=== PATIENT | female | born 1995 | race Two or more races ===

== ENCOUNTER 2023-01-28 10:25 | Emergency (ER) | payer MEDICAID, SELFPAY ==
--- NOTE | ~2023-01-28 | CT_ITS ---
EXAMINATION: CT CHEST WITHOUT CONTRAST CLINICAL INFORMATION: Mass. Palpable abnormality mid chest. The history on ultrasound suggests clinical concern for abscess below the sternoclavicular area COMPARISON: None available. TECHNIQUE: Multidetector volumetric CT imaging of the chest was done. Axial MIP volume rendering provided. Sagittal and coronal reformatted images were obtained. This CT examination was performed using dose optimization techniques as appropriate, variously including the following: *Automated exposure control *Adjustment of mA and/or kV according to patient size (this includes techniques or standardized protocols for targeted exams where dose is matched to indication/reason for exam; i.e. extremities or head) *Use of iterative reconstruction technique DLP: 171 mGy-cm FINDINGS: [employer] MECH[employer]IC: No pneumonia or edema. LUNGS: Limited by motion. No suspicious abnormality of the central airways. There is a possible 0.8 cm nodule in the posteromedial right costophrenic sulcus region (series 4, image 39). There is a possibly calcified 0.3 cm nodule in the periphery of the left upper lobe (series 6, image 118). Nodules in this age group are unlikely to be malignant. In the absence of known primary malignancy further evaluation for cancer is not necessary. MEDIASTINUM: There are no enlarged mediastinal or hilar lymph nodes. No suspicious abnormality the esophagus. CORONARY ARTERY CALCIFICATION: None visualized on this study. PLEURA: There is no pleural effusion. No pleural mass or thickening. AXILLA: No lymphadenopathy. UPPER ABDOMEN: No suspicious abnormality OSSEOUS STRUCTURES: There is no evidence of an abscess in the chest wall. There is no cortical erosion or bone destruction in the region of the sternoclavicular joints. There is no soft tissue gas. CT/CT chest wo IV con IMPRESSION: No pneumonia or edema. No chest wall abscess demonstrated. The patient should be managed on the basis of the physical exam, history and laboratory values. Motion limits assessment but there may be a nodule in the posteromedial right lower lung and a calcified granuloma in the left lung. In this age group malignancy is extraordinarily unlikely unless there is a known primary malignancy. Fleischner criteria do not apply Fleischner guidelines were followed.
--- NOTE | ~2023-01-28 | US_ITS ---
EXAMINATION: US CHEST CLINICAL INFORMATION: Mass on chest. Rule out abscess. COMPARISON: Previous chest x-ray and chest CT from earlier the same day TECHNIQUE: Grayscale and color imaging of the anterior chest wall in the area of palpable abnormality just inferior to the sternoclavicular joints using a linear transducer FINDINGS: No abnormality is evident by ultrasound. No soft tissue mass or fluid collection is seen. US/US chest IMPRESSION: No abnormality seen by ultrasound.
--- NOTE | ~2023-01-28 | XR_ITS ---
EXAMINATION: XR CHEST CLINICAL INFORMATION: Palpable sternal lump. COMPARISON: None available. TECHNIQUE: 2 views of the chest were obtained. FINDINGS: No significant abnormality is noted involving the heart, lungs, mediastinum, bony thorax or soft tissues. XR/XR chest 2V IMPRESSION: No acute cardiopulmonary process. No overt presternal soft tissue abnormality. If the lump persists or worsens, further evaluation with targeted soft tissue ultrasound is recommended.
--- NOTE | 2023-01-28 10:28 | ECG_ITS ---
Test Reason : cp Blood Pressure : / mmHG Vent. Rate : 122 BPM Atrial Rate : 122 BPM P-R Int : 140 ms QRS Dur : 068 ms QT Int : 326 ms P-R-T Axes : 061 044 003 degrees QTc Int : 464 ms Poor data quality Sinus tachycardia Otherwise normal ECG No previous ECGs available Referred By: Generic ED Physician Electronically Signed By:XIOMARA JEFFERY MD
--- NOTE | 2023-01-28 10:32 | PC.NURSE ---
EKG BEING PERFORMED ON ANOTHER PATIENT WHICH RESULTED IN DELAY
[2023-01-28 10:57] VITALS: BP 145/91; PULSE 95; RESP 16; TEMP 36.7; O2SAT 100; BMI 30.4
--- NOTE | 2023-01-28 10:59 | ED_ITS ---
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 She reports that when she gains weight, the mass becomes larger and when she loses weight, the mass becomes smaller. She denies any discharge or drainage from the area. She denies seeing any previous providers for this complaint. She denies any new changes to bring her to the ED today. <LUCY Khan Last Filed: 01/28/23 16:58> Related Data Allergies/Adverse Reactions: Allergies Allergy/AdvReac Type Severity Reaction Status Date / Time No Known Allergies Allergy Verified 01/28/23 11:10 <DARELEN Omalley - Last Filed: 01/28/23 11:12> Review of Systems Review of Systems: As per HPI. <LUCY Khan Last Filed: 01/28/23 16:58> Yes all other systems are reviewed and are negative <LUCY Khan Last Filed: 01/28/23 16:58> PMFSH Social History Social History: Social History Advance Directives: No Advance Directives Information Provided: Yes <DARLEEN Omalley Last Filed: 01/28/23 11:12> Physical Exam Vital Signs: Vital Signs: Last Vital Signs Temp 99.0 F 01/28/23 15:17 Pulse 104 H 01/28/23 15:17 Resp 16 01/28/23 15:17 BP 141/80 H 01/28/23 15:17 Pulse Ox 98 01/28/23 15:17 O2 Del Method Room Air 01/28/23 15:17 BMI result Body Mass Index 30.4 <DARLEEN Omalley - Last Filed: 01/28/23 11:12> Vital Signs: Last Vital Signs Temp 99.0 F 01/28/23 15:17 Pulse 104 H 01/28/23 15:17 Resp 16 01/28/23 15:17 BP 141/80 H 01/28/23 15:17 Pulse Ox 98 01/28/23 15:17 O2 Del Method Room Air 01/28/23 15:17 BMI result Body Mass Index 30.4 <Geena Lerma NP - Last Filed: 01/28/23 16:58> Const: General: cooperative, healthy appearing and no acute distress <Geena Lerma NP - Last Filed: 01/28/23 16:58> Orientation/consciousness: oriented to person, oriented to place, oriented to time and patient oriented x3 <Geena Lerma NP - Last Filed: 01/28/23 16:58> Limitations: no limitations <Geena Lerma NP - Last Filed: 01/28/23 16:58> HEENT: Head: Yes normocephalic and Yes atraumatic <Geena Lerma NP - Last Filed: 01/28/23 16:58> Ears: external ears normal <Geena Lerma NP - Last Filed: 01/28/23 16:58> General nose exam: Normal external nose present <Geena Lerma NP - Last Filed: 01/28/23 16:58> Face and sinus: Yes face symmetric <Geena Lerma NP - Last Filed: 01/28/23 16:58> Mouth: oropharynx normal and moist mucous membranes <Geena Lerma NP - Last Filed: 01/28/23 16:58> Eyes: Pupils: Equal, round and reactive pupils present <Geena Lerma NP - Last Filed: 01/28/23 16:58> Neck: Neck: Yes normal visual inspection and Yes supple <Geena Lerma NP - Last Filed: 01/28/23 16:58> Chest: Chest palpation & inspection: mass superior sternum rubbery and mobile; nontender, no tenderness and No rash <Geena Lerma NP - Last Filed: 01/28/23 16:58> Breast/axilla palpation: no axillary lymphadenopathy <Geena Lerma NP - Last Filed: 01/28/23 16:58> Resp: Effort & Inspection: normal respiratory effort and able to speak in complete sentences <Geena Lerma NP - Last Filed: 01/28/23 16:58> Auscultation: clear to auscultation bilaterally <Geena Lerma NP - Last Filed: 01/28/23 16:58> Cardio: Rate: regular rate <Geena Lerma NP - Last Filed: 01/28/23 16:58> Rhythm: regular rhythm <Geena Lerma NP - Last Filed: 01/28/23 16:58> Heart sounds: S1 normal heart sound present and S2 normal heart sound present <Geena Lerma NP - Last Filed: 01/28/23 16:58> Skin: General skin exam: elasticity normal and turgor normal <Geena Lerma NP - Last Filed: 01/28/23 16:58> Neuro: General: oriented to person, oriented to place, oriented to time, patient oriented x3, moves all extremities and no focal motor deficits <Geena Lerma NP - Last Filed: 01/28/23 16:58> Cranial nerves: Yes Equal, round and reactive pupils present <Geena Lerma NP - Last Filed: 01/28/23 16:58> Cognition (Neuro): normal cognition <Geena Lerma NP - Last Filed: 01/28/23 16:58> Extrem: General: Yes full ROM <Geena Lerma NP - Last Filed: 01/28/23 16:58> Psych: Mental Status: mental status grossly normal <Geena Lerma NP - Last Filed: 01/28/23 16:58> Affect: normal affect <Geena Lerma NP - Last Filed: 01/28/23 16:58> Thought process: Normal thought process present <Geena Lerma NP - Last Filed: 01/28/23 16:58> Course Course Course Narrative: RME - 28 yo female Hat[place] Creole speaking who presents to the ER for evaluation of a waxing/waning painless mass in the center of chest that has been present since 2016. It gets bigger when she gains weight and small whens he loses weight. It is nontender. She has no SOB. She wants to know what it is. Plan: 2 view x-ray, no emergent need for CT scan today <DARLEEN Omalley - Last Filed: 01/28/23 11:12> RME - 28 yo female [place] Creole speaking who presents to the ER for evaluation of a waxing/waning painless mass in the center of chest that has been present since 2016. It gets bigger when she gains weight and small whens he loses weight. It is nontender. She has no SOB. She wants to know what it is. Plan: 2 view x-ray, no emergent need for CT scan today 12:28 Chest x-ray FINDINGS: No significant abnormality is noted involving the heart, lungs, mediastinum, bony thorax or soft tissues. XR/XR chest 2V IMPRESSION: No acute cardiopulmonary process. ? No overt presternal soft tissue abnormality. If the lump persists or worsens, further evaluation with targeted soft tissue ultrasound is recommended. Ordered ultrasound and CT chest without contrast to rule out abscess or malignancy. 16:23 CT/CT chest wo IV con IMPRESSION: No pneumonia or edema. No chest wall abscess demonstrated. ? The patient should be managed on the basis of the physical exam, history and laboratory values. ? Motion limits assessment but there may be a nodule in the posteromedial right lower lung and a calcified granuloma in the left lung. ? In this age group malignancy is extraordinarily unlikely unless there is a known primary malignancy. ? Fleischner criteria do not apply? ? Fleischner guidelines were followed. Awaiting results of ultrasound 16:38 FINDINGS: No abnormality is evident by ultrasound. No soft tissue mass or fluid collection is seen.? US/US chest IMPRESSION: No abnormality seen by ultrasound. ? Advised patient of ultrasound and CT results, likely lipoma or normal anatomic feature of her sternum. Instructed patient to follow up with PCP. Return precautions discussed. <Geena Lerma NP - Last Filed: 01/28/23 16:58> Medical Decision Making Medical Decision Making MDM Narrative: Patient is a 28-year-old female, denies any past history, presenting with nontender mass to the center of her chest which has been present since 2016, and changes in size based on fluctuations in patient's weight. On exam patient is nontoxic appearing with normal vital signs, afebrile, noted to have firm/rubbery non-tender mass to superior sternum without erythema, calor, overlying rash, discharge, or drainage. Considering lipoma, malignancy/mass, fracture, lymphadenopathy. Less likely abscess, cellulitis. Plan: EKG, chest x-ray Please refer to course for remainder of clinical decision making. <Geena hollins NP - Last Filed: 01/28/23 16:58> Differential Diagnosis Differential Diagnoses: The differential diagnosis associated with the presentation includes <Geena Lerma NP - Last Filed: 01/28/23 16:58> As above. <Geena Lerma NP - Last Filed: 01/28/23 16:58> Lab Data Labs: Lab Results 01/28/23 Range/Units 15:19 Urine Test NEGATIVE (NEGATIVE) <DARLEEN Omalley - Last Filed: 01/28/23 11:12> Lab Results 01/28/23 Range/Units 15:19 Urine Test NEGATIVE (NEGATIVE) <Geena Lerma NP - Last Filed: 01/28/23 16:58> Independent Interpretation I performed an independent interpretation of an: EKG, Plain X-Ray, Ultrasound and CT Scan <Geena Lerma NP - Last Filed: 01/28/23 16:58> Interpretation: EKG: sinus tachycardia, rate 122bpm, normal OR interval I independently reviewed the x-ray, U/S, and CT scan and agree with the radiologist's interpretation. <Geena Lerma NP - Last Filed: 01/28/23 16:58> Radiology Impression Discussion of test interpretation with radiology: I have reviewed the radiologist's reading. <Geena Lerma NP - Last Filed: 01/28/23 16:58> Radiologist Impression: FINDINGS: No significant abnormality is noted involving the heart, lungs, mediastinum, bony thorax or soft tissues. XR/XR chest 2V IMPRESSION: No acute cardiopulmonary process. ? No overt presternal soft tissue abnormality. If the lump persists or worsens, further evaluation with targeted soft tissue ultrasound is recommended. <Geena Lerma NP - Last Filed: 01/28/23 16:58> External Record Review External record reviewed: Inpatient record, Office record and Outpatient record <Geena Lerma NP - Last Filed: 01/28/23 16:58> Discharge Plan Discharge Clinical Impression: Chest anomaly <DARLEEN Omalley - Last Filed: 01/28/23 11:12> Patient Disposition: Home, Self-Care <DARLEEN Omalley - Last Filed: 01/28/23 11:12> Additional Instructions: You were evaluated in the emergency department today for a lump on your chest. Your evaluation, including x-ray, ultrasound and CT scan, has shown no signs of medical conditions requiring emergent intervention at this time. You should follow up with your primary care provider within the next week. Return to the emergency department if you experience new chest pain, shortness of breath, light headedness, feeling faint, or any other concerning symptoms. <DARLEEN Omalley - Last Filed: 01/28/23 11:12>
[2023-01-28 15:17] VITALS: BP 141/80; PULSE 104; RESP 16; TEMP 37.2; O2SAT 98
[2023-01-28 15:26] LABS: UPreg QC Valid YES
[2023-01-28 15:28] LABS: Urine Pregnancy NEGATIVE (NEGATIVE)
== END 2023-01-28 17:11 | disposition home or self-care (01) ==
PROVIDERS: Registered Nurse Emergency; Emergency Provider Emergency Medicine
DX: R07.89 Other chest pain (principal); R22.2 Localized swelling, mass and lump, trunk; M54.6 Pain in thoracic spine; Z79.899 Other long term (current) drug therapy
CPT/HCPCS: 71046; 71250; 76604; 81025; 93005; 99283; 99284

== ENCOUNTER 2024-02-03 09:38 | Outpatient (REF) | payer MEDICAID, SELFPAY ==
[2024-02-03 11:45] LABS: Hematocrit 39.1 % (37.0-47.0); Mean Corpuscular HGB Conc 33.2 g/dl (31.0-35.0); Mean Corpuscular Hemoglobin 28.8 pg (27.0-33.0); Mean Corpuscular Volume 86.7 fL (80.0-98.0); Mean Platelet Volume 9.9 fL (9.4-12.3); Platelet Count 484 X10*3/uL (160-400); Red Blood Count 4.51 X10*6/uL (4.20-5.50); Red Cell Distribution Width 12.9 % (11.0-16.0); White Blood Count 6.4 X10*3/uL (4.8-10.8)
[2024-02-03 12:21] LABS: Estimated Average Glucose 108 mg/dL; Hemoglobin A1c % 5.4 % (<6.0)
[2024-02-03 12:25] LABS: Alanine Aminotransferase 14 U/L (0-31); Albumin Level 4.6 g/dL (3.5-5.0); Alkaline Phosphatase 108 U/L (39-117); Anion Gap 14 (12-20); Aspartate Amino Transferase 17 U/L (5-31); Bilirubin Total 0.4 mg/dL (0.0-1.0); Blood Urea Nitrogen 8 mg/dL (9-16); Calcium 9.8 mg/dL (8.4-10.2); Carbon Dioxide 23 mmol/L (22-29); Chloride 108 mmol/L (96-108); Cholesterol 162 mg/dL (<200); Estimated Glomerular Filt Rate > 60; Glucose Random 85 mg/dL (60-115); HDL Cholesterol 51 mg/dL (>40); LDL Cholesterol Calculated 104 mg/dL (<100); Potassium 3.6 mmol/L (3.3-5.1); Sodium 141 mmol/L (135-145); Total Protein 8.4 g/dL (6.5-8.0); Triglycerides 37 mg/dL (<150)
[2024-02-03 12:32] LABS: TSH reflex Free T4 1.94 uIU/mL (0.32-4.0); Vitamin D 25-OH Total 21.5 ng/mL (>30)
[2024-02-03 13:12] LABS: CT PCR NOT DETECTED (Not Detect.); NG PCR NOT DETECTED (Not Detect.)
[2024-02-03 18:15] LABS: Iron 73 mcg/dL (30-160); Percent Iron Saturation 24 % (15-50); Total Iron Binding Capacity 298 mcg/dL (228-428); Unsaturated Iron Binding 225 ug/dL
[2024-02-03 18:28] LABS: Ferritin 61 ng/mL (10-122)
[2024-02-06 08:16] LABS: Syphilis Screen Nonreactive (Nonreactive)
[2024-02-06 08:29] LABS: HBS Num1 0.89 mIU/mL (0-7.99); HBc Num1 0.21 S/CO (0.00-0.79); HBsAGNum1 0.31 S/CO (0.00-0.99); HIV AB/AG Nonreactive (Nonreactive); HIV Num 1 0.09 S/CO (0.00-0.99); Hepatitis B Core Antibody Nonreactive (Nonreactive); Hepatitis B Surface Antigen Negative (Negative); ~HepC Num1 0.18 S/CO (0.00-0.79); ~Hepatitis B Surface Antibody NONREACTIVE (Nonreactive); ~Hepatitis C Antibody Nonreactive (Nonreactive)
== END 2024-02-03 09:39 | disposition home or self-care (01) ==
LOC: HO.HHCL 09:38
PROVIDERS: Visit Provider Student in an Organized Health Care Education/Training Program
DX: Z00.00 Encounter for general adult medical examination without abnormal findings (principal)
CPT/HCPCS: 0353U; 36415; 80053; 80061; 82306; 82728; 83036; 83540; 84443; 85027; 86704; 86706; 86780; 86803; 87340; 87389

== ENCOUNTER 2024-05-09 09:26 | Outpatient (REF) | payer MEDICAID, SELFPAY ==
[2024-05-09 12:26] LABS: Iron 58 mcg/dL (30-160); Percent Iron Saturation 20 % (15-50); Total Iron Binding Capacity 287 mcg/dL (228-428); Unsaturated Iron Binding 229 ug/dL
[2024-05-09 12:39] LABS: Ferritin 64 ng/mL (10-122)
== END 2024-05-09 09:27 | disposition home or self-care (01) ==
LOC: HO.HHCL 09:26
PROVIDERS: Visit Provider Student in an Organized Health Care Education/Training Program
DX: Z00.00 Encounter for general adult medical examination without abnormal findings (principal)
CPT/HCPCS: 36415; 82728; 83540

== ENCOUNTER 2025-09-10 14:37 | Outpatient (REF) | payer MEDICAID, SELFPAY ==
[2025-09-10 16:16] LABS: Hematocrit 39.3 % (37.0-47.0); Hemoglobin 12.8 g/dl (12.0-16.0); Mean Corpuscular HGB Conc 32.6 g/dl (31.0-35.0); Mean Corpuscular Hemoglobin 29.4 pg (27.0-33.0); Mean Corpuscular Volume 90.3 fL (80.0-98.0); NRBC Abs Auto 0.000 X10*3/uL (0.0-0.012); NRBC Pct Auto 0.0 /100WBC (0.0-0.2); Platelet Count 446 X10*3/uL (160-400); Red Blood Count 4.35 X10*6/uL (4.20-5.50); White Blood Count 7.3 X10*3/uL (4.8-10.8)
[2025-09-10 16:58] LABS: Alanine Aminotransferase 21 U/L (0-31); Albumin Level 4.9 g/dL (3.5-5.0); Alkaline Phosphatase 78 U/L (39-117); Anion Gap 10 (12-20); Aspartate Amino Transferase 30 U/L (5-31); Blood Urea Nitrogen 9 mg/dL (9-16); Calcium 9.4 mg/dL (8.4-10.2); Carbon Dioxide 23 mmol/L (22-29); Chloride 106 mmol/L (96-108); Cholesterol 140 mg/dL (<200); Estimated Glomerular Filt Rate > 60; HDL Cholesterol 50 mg/dL (>40); Potassium 3.4 mmol/L (3.3-5.1); Sodium 136 mmol/L (135-145); Total Protein 7.9 g/dL (6.5-8.0); Triglycerides 58 mg/dL (<150)
--- OUTSIDE RECORDS SUMMARY | 2025-09-10 18:54 | XMS_ITS | Clinical Summary ---
Author Organization [employer] Address [address] [facility] [address] [place] [address] Care Team Providers Care Playground Attendant Name Role Phone Stephanie Robles MD Primary Care Pro vider Allergies No known active allergies Medications Misc. Devices (Pulse Oximeter Deluxe) mis 1 Application Once per day. 1 each Active Active Problems Patient Care Coordination No te Formatting of this note migh t be different from the original. 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 Thrombocytosis 02/07/2024 Class 1 obesity 12/14/2023 Elevated blood pressure reading 12/14/2023 Health care maintenance 12/14/2023 Resolved Problems Problem Noted Date Diagnosed Date Resolved Date Decreased vision of left eye 12/14/2023 06/11/2025 Encounters Date Type Department Care Team Description 08/19/2025 9:15 AM EST Office Visit [facility] [address] [place] [address] Joseph, Nusrat, OD Hypermetropia, right (Primary Dx) 07/01/2025 Telephone [facility] [address] [place] [address] Stephanie Robles MD chart prep from Last 3 Months Immunizations Immunization Administration Dates Next Due Hep B, adult 02/26/2025,03/09/2024,02/07/2024 Influenza, IIV3, injectable 06/30/2023 Pfizer Covid-19 Vaccine 12+ 12/14/2023 RSV Bivalent 10/06/2023 Tdap 08/25/2023 Social History Tobacco Use Types Packs/Day Years Used Date Smoking Tobacco: Never Passive Smoke Exposure: Never Smokeless Tobacco: Never Tobacco Cessation:Counseling Given: Not Answered Alcohol Use Standard Drinks/Week Comments Not Asked 0 (1 standard drink = 0.6 oz pur e alcohol) social Depression Answer Date Recorded Patient Health Questionnaire-9 Score 0 12/14/2023 Patient Health Questionnaire-9 Score 0 12/14/2023 Last PHQ-9: Questionnaire Data Not on file 0 12/14/2023 Housing Stability Answer Date Recorded What is your housing situation today? I have enoch kit 02/26/[address] you li ve. Do you have problems with any of the following? None of the above 02/26/2025 Food Insecurity Answer Date Recorded Within the past 12 months, y ou worried that your food would run out before you got money to buy more: Never True 02/26/2025 Within the past 12 months,th e food you bought just didn't last and you didn't have enough money to get more: Never True 11/2024 Transportation Answer Date Recorded In the past 12 months, has l ack of transportation kept you from medical appts, meetings, work or from getting things needed for daily living? No 02/26/2025 Utilities Answer Date Recorded In the past 12 months, has t he electric, gas, oil or water company threatened to shut off services in your home? No 02/26/2025 Depression Answer Date Recorded Patient Health Questionnaire-2 Score 0 12/14/2023 Internet Access Answer Date Recorded Internet Access Q1 No 02/26/2025 Internet Access Q2 I do not want or need it 11/2024 Comments Unknown Sex and Gender Information Value Date Recorded Sex Assigned at Female 12/14/2023 9:06 AM EDT Legal Sex Female 11:08 AM EDT Gender Identity Female 12/14/2023 9:06 AM EDT Sexual Orientation Straight 12/14/2023 9: 36 AM EDT Last Filed Vital Signs Vital Sign Reading Time Taken Comments Blood Pressure 126/70 02/26/2025 2:23 PM EDT Pulse 108 02/26/2025 2:23 PM EDT Temperature 36.2 C (97.1 F) 02/26/2025 2:23 PM EDT Respiratory Rate 20 02/26/2025 2:23 PM EDT Oxygen Saturation 100% 02/26/2025 2:23 PM EDT Inhaled Oxygen Concentration - - Weight 74.9 kg (165 lb 3.2 oz) 04/23/2025 1:44 P M EDT Height 152.4 cm (5') 04/23/2025 1:44 PM EDT Body Mass Index 32.26 04/23/2025 1:44 PM EDT Plan of Treatment Upcoming Encounters Date Type Department Care Team (Late st Contact Info) Description 09/13/2025 2:00 PM EST Office Visit [facility] [address] [place], [place] [phone] Stephanie Robles MD [address] [place], [place] [phone] Health Maintenance Due Date Last Done Comments Family Planning (PISQ) 01/18/2011 HPV Vaccines (1 - 3-dose series) 01/18/2011 Pap Smear 01/18/2017 Depression Screening 12/13/2024 12/14/2023, 12/14/2023 COVID-19 Vaccine (2 - 2024-2 6 season) 2025 12/14/2023 Influenza Vaccine (#1) 2025 06/30/2023 Alcohol/Substance Use Screening 02/26/2026 02/26/2025 Disability Screening 02/26/2026 02/26/2025 SDOH Screening 02/26/2026 02/26/2025 Tobacco Screening 06/11/2026 06/11/2025 Lipid Panel 09/10/2030 09/10/2025, 02/03/2024 DTaP/Tdap/Td Vaccines (2 - T d or Tdap) 08/25/2033 08/25/2023 Zoster Vaccines (1 of 2) 01/18/2046 RSV Patients and Patients Aged 60 years or older Completed 10/06/2023 HIV Screening Completed 02/03/2024 Hepatitis C Screening Completed 02/03/2024 Hepatitis B Vaccines Completed 02/26/2025, 03/09/2024, 02/07/2024 HIB Vaccines Aged Out No longer eligi ble based on patient's age to complete this topic Hepatitis A Vaccines Aged Out No long er eligible based on patient's age to complete this topic IPV Vaccines Aged Out No longer eligi ble based on patient's age to complete this topic Meningococcal B Vaccine Aged Out No l onger eligible based on patient's age to complete this topic Meningococcal Vaccine Aged Out No sophia renata eligible based on patient's age to complete this topic Pneumococcal Vaccine: Pediatrics (0 to 5 Years) and At-Risk Patients (6 to 49) Years Aged Out No longer eligible b ased on patient's age to complete this topic RSV under 20 months Aged Out No longe r eligible based on patient's age to complete this topic Rotavirus Vaccines Aged Out No longer eligible based on patient's age to complete this topic Procedures Procedure Name Priority Date/Time Associated Diagnosis Comments VITAMIN D,25-OH,TOTAL,IA Routine 09/10/2025 2:44 PM EST Annual physical exam TSH W/REFLEX TO FT4 Routine 09/10/2025 2 :44 PM EST Annual physical exam LIPID PANEL, STANDARD Routine 09/10/2025 2:44 PM EST Annual physical exam HEMOGLOBIN A1C Routine 09/10/2025 2:44 PM EST Annual physical exam COMPREHENSIVE METABOLIC PANEL Routine 09/10/2025 2:44 PM EST Annual physical exam CBC Routine 09/10/2025 2:44 PM EST Annual physical exam AMB REFERRAL TO OPHTHALMOLOGY Routine 06/28/2025 Leukocoria of left eye HEPATITIS C AB W/REFL TO HCV RNA, QN, PCR Routine 02/03/2024 9:41 AM EDT Annual physical exam HIV 1/2 ANTIGEN/ANTIBODY, FOURTH GENERATION W/RFL Routine 02/03/2024 9:41 AM EDT Annual physical exam from Last 3 Months or Most Recently Relevant to Health Maintenance Results * Vitamin D, 25-Hydroxy, Total, Immunoassay (09/10/2025 2:44 PM EST) Vitamin D 25-OH Total 38.9 >30 ng/mL [facility] Comment: Health Based Reference Values*< 20 ng/mL Dywyoybik09-72 ng/mL Insufficient> 30 ng/mL Sufficient*Mayela LINDER. N Engl J Med. 2007;357:266-280There is no well-established upper level of normal vitamin Dlevels. Some laboratories use 50 ng/mL as an upper limit ofnormal. However, toxicity is patient-dependent and may occurat any level. Careful correlation with the patient'spresentation is necessary and, if there is concern forvitamin D toxicity, treatment should be consideredirrespective of the serum level.Care must be taken in interpreting Vitamin D results fromdifferent laboratories and methodologies. Published datademonstrated that results from patients undergoinghemodialysis may show a negative bias when tested withvarious automated 25-OH vitamin D assays when compared toLC-MS/MS.When testing samples from patients whose predominant form ofVitamin D is Vitamin D2, such as patients receiving VitaminD2 supplementation, results that are subtherapeutic shouldbe confirmed with another method such as LC-MS/MS. Blood Venous blood specimen / Unknown 09/10/2025 2:44 PM EST 09/10/2025 4:04 PM EST us Stephanie Staley MD LAB BLOOD ORDERAB LES Final Result Performing Organization Address City/[facility]/ZIP Co de Phone Number [facility] [address] [place] [phone] * TSH with Reflex to Free T4 (09/10/2025 2:44 PM EST) TSH reflex Free T4 2.65 0.32 - 4.0 uIU/mL [facility] Blood 09/10/2025 2:44 PM EST 09/10/2025 4:04 PM EST us Stephanie Staley MD LAB BLOOD ORDERAB LES Final Result Performing Organization Address City/[facility]/ZIP Co de Phone Number [facility] [address] [place] [phone] * (ABNORMAL) CBC (09/10/2025 2:44 PM EST) White Blood Count 7.3 4.8 - 10.8 X10*3/uL [facility] Red Blood Count 4.35 4.20 - 5.50 X10*6/uL [facility] Hemoglobin 12.8 12.0 - 16.0 g/dl [facility] Hematocrit 39.3 37.0 - 47.0 % [facility] Mean Corpuscular Volume 90.3 80.0 - 98.0 fL [facility] Mean Corpuscular Hemoglobin 29.4 27.0 - 33.0 pg [facility] Mean Corpuscular HGB Conc 32.6 31.0 - 35.0 g/dl [facility] Red Cell Distribution Width 12.0 11.0 - 16.0 % [facility] Platelet Count 446(H) 160 - 400 X10*3/uL [facility] Mean Platelet Volume 10.0 9.4 - 12.3 fL [facility] NRBC Pct Auto 0.0 0.0 - 0.2 /100WBC [facility] NRBC Abs Auto 0.000 0.0 - 0.012 X10*3/uL [facility] Blood Venous blood specimen / Unknown 09/10/2025 2:44 PM EST 09/10/2025 4:04 PM EST us Stephanie Staley MD LAB BLOOD ORDERAB LES Final Result [facility] [address] [place] [phone] * Hemoglobin A1c (09/10/2025 2:44 PM EST) Hemoglobin A1c 5.4 <6.0 % [facility] Comment:Hemoglobin A1C Refer ence Range Adults: 4.8 - 6.0 % Non diabetic: < 6.0 % Goal: < 7.0 %Additional Action Suggested: > 8.0 %Note: Hemoglobin A1c results are invalid for patients with abnormal amounts of HbF. Blood transfusions may impact the HbA1c concentration in the patient sample. Estimated Average Glucose 108 mg/dL [facility] Comment:eAG = Estimated ave rage glucose which is %A1C expressed asaverage glucose, using the formula of the F1K-PcfbfjfRnlikfp Glucose study (ADAG), Diabetes Care, Vol.31,#8,Apr. 2007 Blood Venous blood specimen / Unknown 09/10/2025 2:44 PM EST 09/10/2025 4:04 PM EST us Stephanie Staley MD LAB BLOOD ORDERAB LES Final Result [facility] [address] [place] [phone] * Lipid Panel, Standard (09/10/2025 2:44 PM EST) Triglycerides 58 <150 mg/dL [facility] Comment:Desirable Triglyceri de: less than 150 mg/dLBorderline High Triglyceride 150-199 mg/dLHigh Triglyceride: 200-499 mg/dLVery High Triglyceride: greater than or equal to 5OO mg/dL Cholesterol 140 <200 mg/dL [facility] Comment:Desirable Cholestero l: less than 200 mg/dLBorderline High Cholesterol: 200-239 mg/dLHigh Cholesterol: greater than 239 mg/dL LDL Cholesterol Calculated 79 <100 mg/dL [facility] Comment:Desirable LDL: less than 100 mg/dLNear Optimal/Above Optimal LDL: 110- 129 mg/dLBorderline High LDL: 130-159 mg/dLHigh LDL: 160-189 mg/dLVery High LDL: greater than or equal to 190 mg/dL HDL Cholesterol 50 >40 mg/dL [facility] Comment:Desirable HDL: great er than 40 mg/dL Note: This HDL assay may give artificially low results in patients with liver disease. Blood Venous blood specimen / Unknown 09/10/2025 2:44 PM EST 09/10/2025 4:04 PM EST us Stephanie Staley MD LAB BLOOD ORDERAB LES Final Result Performing Organization Address City/[facility]/ZIP Co de Phone Number [facility] [address] [place] [phone] * (ABNORMAL) Comprehensive Metabolic Panel (09/10/2025 2:44 PM EST) Sodium 136 135 - 145 mmol/L [facility] Potassium 3.4 3.3 - 5.1 mmol/L [facility] Chloride 106 96 - 108 mmol/L [facility] Carbon Dioxide 23 22 - 29 mmol/L [facility] Anion Gap 10(L) 12 - 20 [facility] Urea Nitrogen (BUN) 9 9 - 16 mg/dL [facility] Creatinine, Serum 0.65 0.5 - 1.4 mg/dL [facility] Estimated Glomerular Filt Rate >60 [facility] Comment:Chronic Kidney Disea se: Estimated GFR < 60 mL/min/1.29n5Itvbuc Kidney Disease: Estimated GFR < 15 mL/min/1.73m2 Glucose 85 60 - 115 mg/dL [facility] Calcium 9.4 8.4 - 10.2 mg/dL [facility] Bilirubin, Total 0.4 0.0 - 1.0 mg/dL [facility] Aspartate Amino Transferase 30 5 - 31 U/L [facility] Alanine Aminotransferase 21 0 - 31 U/L [facility] Total Protein 7.9 6.5 - 8.0 g/dL [facility] Albumin Level 4.9 3.5 - 5.0 g/dL [facility] Alkaline Phosphatase 78 39 - 117 U/L [facility] Blood Venous blood specimen / Unknown 09/10/2025 2:44 PM EST 09/10/2025 4:04 PM EST us Stephanie Staley MD LAB BLOOD ORDERAB LES Final Result Performing Organization Address City/[facility]/ZIP Co de Phone Number [facility] [address] [place] [phone] [phone] * Referral to Ophthalmology (06/28/2025) Result [facility] Sonya Flores OD OUTPATIENT REFERRAL ORDERABLES Final Result * Hepatitis C Antibody with Reflex to HCV, RNA, Quantitative, Real-Time PCR (02/03/2024 9:41 AM EDT) Hepatitis C Antibody Nonreactive Nonreactive [facility] Comment:Antibodies to HCV no t detected; does not exclude early acuteHCV infection. Blood Venous blood specimen / Unknown 02/03/2024 9:41 AM EDT 02/03/2024 11:28 AM EDT Result [facility] Stephanie Staley MD LAB BLOOD ORDERAB LES Final Result [facility] [address] [place] [phone] * HIV-1/2 Antigen and Antibodies, Fourth Generation, with Reflexes (02/03/2024 9:41 AM EDT) HIV AB/AG Nonreactive Nonreactive [facility] Comment:HIV-1 p24 Ag and/or HIV-1/HIV-2 Ab not detected.A test result that is nonreactive does not exclude thepossibility of exposure to or infection with HIV-1 and/orHIV-2. Nonreactive results in this assay for individualswith prior exposure to HIV-1 and/or HIV-2 may be due toantigen and antibody levels that are below the limit ofdetection of this assay.The [employer] HIV Ag/Ab Combo assay result andsupplemental assay results should be interpreted inconjunction with the patient's clinical presentation,history and other laboratory results. If the results areinconsistent with clinical evidence, additional testing issuggested to confirm the result. Blood Venous blood specimen / Unknown 02/03/2024 9:41 AM EDT 02/03/2024 11:28 AM EDT Stephanie Staley MD LAB BLOOD ORDERAB LES Final Result [facility] [address] [place] [phone] from Last 3 Months or Most Recently Relevant to Health Maintenance [place] [address] [place] [address] C3 Care Teams Playground Attendant Relationship Specialty Start Date End Date Stephanie Robles MD [address] [place] [phone] PCP - General Internal Medicine 12/14/23
[2025-09-11 04:46] LABS: HBS Num1 > 1000.00 mIU/mL (0-7.99); HBc Num1 0.14 S/CO (0.00-0.79); HIV Num 1 0.09 S/CO (0.00-0.99); ~HepC Num1 0.17 S/CO (0.00-0.79); ~Hepatitis B Surface Antibody REACTIVE (Nonreactive); ~Hepatitis C Antibody Nonreactive (Nonreactive)
[2025-09-11 04:49] LABS: Syphilis Screen Nonreactive (Nonreactive)
[2025-09-11 18:08] LABS: Rubeola IgG (Measles) 136.00 AU/mL
[2025-09-12 13:20] LABS: HBsAGNum1 0.28 S/CO (0.00-0.99); Hepatitis B Surface Antigen Negative (Negative)
[2025-09-13 02:29] LABS: TS Negative Control Passed; TS Panel A 0; TS Panel B 0; TS Positive Control Passed; TSpotTB Negative (Negative)
== END 2025-09-10 14:38 | disposition home or self-care (01) ==
LOC: HO.HHCL 14:37
PROVIDERS: PCP Student in an Organized Health Care Education/Training Program; Visit Provider Student in an Organized Health Care Education/Training Program
DX: Z00.00 Encounter for general adult medical examination without abnormal findings (principal); Z11.4 Encounter for screening for human immunodeficiency virus [HIV]; Z11.1 Encounter for screening for respiratory tuberculosis; Z11.59 Encounter for screening for other viral diseases; Z01.84 Encounter for antibody response examination
CPT/HCPCS: 36415; 80053; 80061; 82306; 83036; 84443; 85027; 86481; 86704; 86706; 86735; 86762; 86765; 86780; 86803; 87340; 87389